=== PATIENT | male | born 1970 | race African-American/Black ===

== ENCOUNTER 2024-06-26 16:38 | Emergency (ER) | payer OTHER, SELFPAY ==
--- NOTE | ~2024-06-26 | XR_ITS ---
XR shoulder RT min 2V Ordering provider: Loni Fine PA-C History: . right shoulder pain x 3 weeks, no injury . Comparison: None. FINDINGS: BONES: No acute fracture or dislocation. JOINT SPACES: The acromioclavicular joint is normal. The glenohumeral joint shows mild osteoarthritic changes. SOFT TISSUES: Normal. IMPRESSION: No acute osseous abnormality right shoulder. Reviewed, dictated and finalized at location A.
--- NOTE | ~2024-06-26 | CT_ITS ---
CT cervical spine wo con Ordering provider: Loni Fine PA-C History: . neck pain, right arm pain . Comparison: None. Technique: CT of the cervical spine was performed without contrast. Sagittal and coronal reformatted images were also obtained and reviewed. Automated exposure control and iterative reconstruction awais hnique were employed. The dose-length product was 422.51 mGy-cm. FINDINGS: VERTEBRAE: No subluxation or acute fracture. The occipital condyles are intact. Degenerative changes of the spine. DISC SPACES: Normal. PARASPINOUS SOFT TISSUES: Normal. Bilateral carotid calcifications. IMPRESSION: No acute osseous abnormality cervical spine. Reviewed, dictated and finalized at location A.
[2024-06-26 17:17] VITALS: BP 154/95; PULSE 72; RESP 18; TEMP 36.5; O2SAT 99
--- NOTE | 2024-06-26 19:56 | ED.EXTPRO ---
HPI - Extremity Problem General Chief complaint: Extremity Problem,Nontraumatic Stated complaint: right arm pain x3 weeks Time Seen by Provider: 06/26/24 19:43 Source: patient Mode of arrival: ambulatory Limitations: no limitations History of Present Illness HPI Narrative: This is a 53 year old male that presents to the ER for right arm pain. Ongoing over the last several weeks. Reports the pain starts in the right side of his neck and radiates down his arm. Worse with certain movements. He was seen at another ER. Prescribed muscle relaxer and Ibuprofen and is continuing to experience pain. Denies numbness, weakness, swelling, redness. Related Data Allergies Allergy/AdvReac Type Severity Reaction Status Date / Time No Known Allergies Allergy Verified 06/26/24 17:19 Review of Systems Review of Systems: CONSTITUTIONAL: Denies fever SKIN: Denies rash MUSCULOSKELETAL: Reports joint pain, and myalgia. NEUROLOGIC: Denies numbness, or weakness. All systems reviewed & are unremarkable except as noted in HPI and below PMFSH Past Medical History Medical History (Updated 06/26/24 @ 22:04 by Loni Fine PA-C) No active medical problems Social History Social History (Updated 06/26/24 @ 19:59 by Loni Fine PA-C) Smoking status: Current some day smoker Tobacco type: cigars Exam Narrative: GENERAL: Well-appearing, well-nourished, and in no acute distress. HEAD: Normocephalic, atraumatic. EYES: EOMI. CHEST: Clear to auscultation. No respiratory distress. No wheezes rales or rhonchi HEART: Regular rate and rhythm. No murmur heard. Normal peripheral pulses. EXTREMITIES: Normal range of motion. No edema. Strength equal in bilateral upper extremities (5/5). Normal sensation SKIN: Warm, dry, no rash. NEURO: No focal deficits. Alert and oriented x3. PSYCH: Normal mood and affect Course Course Emergency Course: Patient updated on his workup and agrees with plan of care Vital Signs Vital signs: Vital Signs Temperature 97.7 F 06/26/24 17:17 Pulse Rate 72 06/26/24 17:17 Respiratory Rate 18 06/26/24 17:17 Blood Pressure 154/95 H 06/26/24 17:17 Pulse Oximetry 99 06/26/24 17:17 Oxygen Delivery Room Air 06/26/24 17:17 Temperature 97.7 F 06/26/24 17:17 Pulse Rate 78 06/26/24 20:31 Respiratory Rate 18 06/26/24 20:31 Blood Pressure 150/78 H 06/26/24 20:31 Pulse Oximetry 98 06/26/24 20:31 Oxygen Delivery Room Air 06/26/24 17:17 MDM - Extremity (Nontraumatic) MDM Narrative Medical decision making narrative: Patient presents to the emergency department for right arm pain ongoing over the last several weeks. No recent injuries or trauma. Patient is neurovascularly intact. CT cervical spine is without acute osseous abnormalities. Right shoulder x-ray also without acute osseous abnormalities. Patient updated on his workup and agrees with plan of care. Instructed to have further follow-up with orthopedics. He was given warnings to return to the ER Differential Diagnosis Differential diagnosis: Likely other (muscle strain, muscle spasm, cervical radiculopathy, rotator cuff tendinitis) Imaging Data Radiologist's impression: ITS Impressions Cervical Spine CT 06/26/24 20:25 IMPRESSION: No acute osseous abnormality cervical spine. Shoulder X-Ray 06/26/24 21:11 IMPRESSION: No acute osseous abnormality right shoulder. Critical Care Time Critical Care Time Critical Care Time: No Discharge Plan Discharge Clinical Impression: Arm pain, right Patient Disposition: Home, Self-Care Condition: Stable Instructions: Arm Pain (ED) Additional Instructions: Return to the emergency department if you experience fever, chest pain, shortness of breath, redness and swelling of your arm, weakness, numbness, or any other symptoms that are concerning to you. Rest. Use ice/heat. Over the counter pain medication as needed. Muscle rela
[2024-06-26] MEDS: ACETAMINOPHEN 500 MG TABLET 1000 MG PO (20:19)
[2024-06-26] MEDS: diazePAM INJ (*CRX) 10 MG/2 ML SYRINGE 5 MG IM (20:19)
[2024-06-26 20:31] VITALS: BP 150/78; PULSE 78; RESP 18; O2SAT 98
== END 2024-06-26 22:28 | disposition home or self-care (01) ==
PROVIDERS: Emergency Provider Physician Assistant
DX: M79.601 Pain in right arm (principal); F17.290 Nicotine dependence, other tobacco product, uncomplicated
CPT/HCPCS: 72125; 73030; 96372; 99284; A9270; J3360